=== PATIENT | male | born 1960 | race Caucasian/White ===

== ENCOUNTER 2016-06-02 11:02 | Day surgery (SDC) ==
[2016-06-02] MEDS ORDERED: DIPRIVAN 20 ML VIAL IVP ONE (12:12)
[2016-06-02] MEDS ORDERED: VERSED ONE (12:12)
[2016-06-02 13:41] VITALS: BP 145/94; TEMP 98.2
--- NOTE | 2016-06-02 15:00 | OP ---
PROCEDURE: COLONOSCOPY TO THE CECUM WITH SNARE POLYPECTOMY. ENDOSCOPIST: Bernardo CONDE M.D. INDICATION: SCREENING INSTRUMENT: [id number]. MEDICATION: PER ANESTHESIA. PROCEDURE: The patient was positioned for colonoscopy. The digital rectal exam was negative. The colonoscope was inserted through the anus and advanced to the cecum. The cecum was identified using the ileocecal valve and the appendiceal orifice as landmarks. The scope was slowly withdrawn through an adequately prepped colon. Careful inspection made of each colonic segment and the scope is withdrawn in a circumferential fashion. Care is take to inspect the proximal side of the ileocecal valve, haustral folds, flexures and rectal valves. Small polyp at 20 cm removed using snare cautery. Divertuli noted in the left colon. The retroflex exam was other negative with except of hemorrhoids. Withdraw time 8 minutes. PLAN: 1. Suggest repeat colonoscopy in 5-10 years after we review his pathology CC: Dr. Solis DOLL
== END 2016-06-02 13:32 | disposition home or self-care (01) ==
LOC: SURG 11:02
PROVIDERS: ATTEND Internal Medicine Gastroenterology
DX: Z12.11 Encounter for screening for malignant neoplasm of colon (principal); D12.5 Benign neoplasm of sigmoid colon; K57.30 Diverticulosis of large intestine without perforation or abscess without bleeding; K64.9 Unspecified hemorrhoids

== ENCOUNTER 2017-10-12 10:11 | Outpatient (CLI) | END 2017-10-12 10:12 | disposition home or self-care (01) | LOC: LAB 10:11 | PROVIDERS: ATTEND Internal Medicine | DX: B83.9 Helminthiasis, unspecified (principal) ==

== ENCOUNTER 2017-10-13 14:48 | Outpatient (CLI) | END 2017-10-13 14:49 | disposition home or self-care (01) | LOC: LAB 14:48 | PROVIDERS: ATTEND Internal Medicine | DX: B83.9 Helminthiasis, unspecified (principal) | CPT/HCPCS: 87015; 87045; 87899 ==

== ENCOUNTER 2018-02-22 08:39 | Outpatient (CLI) ==
--- NOTE | 2018-02-22 09:56 | CT ---
EXAM: CT of the abdomen pelvis with and without contrast History: Abdominal pain, change in bowel habits, diarrhea and constipation. Technique: Multiplanar CT images through the abdomen pelvis were obtained with and without the admin istration of IV contrast Findings: Subsegmental atelectasis seen within the lower lungs. No acute osseous abnormalities. Mo derate to severe degenerative disc disease at L2-L3. No renal stones and no hydronephrosis. No ureteral calculi. No gallstones identified by CT. Atherosclerotic vascular calcifications. No focal liver or splenic lesions. 3 cm simple cyst within the right kidney and 1 cm simple cyst within the left kidney. Panc reas is unremarkable. Adrenal glands are within normal limits. The appendix is normal. Small fat-c ontaining umbilical hernia. No bowel obstruction. No bladder wall thickening. Surgical clips seen in the pelvis. Bladder is low lying within the pelvis. Colonic diverticulosis. No free air and no ascites. Mild to moderate scattered colonic stool. No lymphadenopathy. Impression: 1. No acute intra-abdominal or pelvic process. 2. Colonic diverticulosis. 3. Simple bilateral renal cysts
== END 2018-02-22 08:40 | disposition home or self-care (01) ==
LOC: RAD 08:39
PROVIDERS: ATTEND Internal Medicine
DX: R19.4 Change in bowel habit (principal)

== ENCOUNTER 2018-02-25 13:31 | Outpatient (CLI) | END 2018-02-25 13:32 | disposition home or self-care (01) | LOC: LAB 13:31 | PROVIDERS: ATTEND Internal Medicine | DX: R19.5 Other fecal abnormalities (principal) | CPT/HCPCS: 87015; 87045; 87177; 87899 ==

== ENCOUNTER 2018-05-20 10:51 | Emergency (ER) ==
[2018-05-20 11:02] VITALS: BP 139/98; TEMP 98.2; BMI 22.6
--- NOTE | 2018-05-20 11:30 | ED.PDOC ---
General ED Provider: Dr. JUN TOMLINSON Chief Complaint: Diarrhea Stated Complaint: Flu symptoms for past 5 days with diarrhea and abdominal cramping . Denies N-V Time Seen by Physician: 11:15 Mode of Arrival: Walk-In Information Source: Patient Exam Limitations: No limitations Primary Care Provider: YEN FERRARA Nursing and Triage Documentation Reviewed and Agree: Yes Does patient meet sepsis criteria?: No System Inflammatory Response Syndrome: Not Applicable Sepsis Protocol: For patient's 13 years and over: Temp is 96.8 and below OR 101 and greater Pulse >90 BPM Resp >20/minute Acutely Altered Mental Status Are patient's symptoms suggestive of a new infection, such as: -Pneumonia -Skin, Soft Tissue -Endocarditis -UTI -Bone, Joint Infection -Implantable Device -Acute Abdominal Infection -Wound Infection -Meningitis -Blood Stream Catheter Infection -Unknown GI Complaint Exam - Vomiting/Diarrhea Complaint/Exam Onset/Duration: 3 days Symptoms Are: Still present (but improving) Episodes of Vomiting over last 24 Hours: 0 Episodes of Diarrhea Over Last 24 Hours: 3 Review of Systems - Review Of Systems Constitutional: Reports: No symptoms Eyes: Reports: No symptoms Ears, Nose, Mouth, Throat: Reports: No symptoms Respiratory: Reports: No symptoms Cardiac: Reports: No symptoms GI: Reports: Diarrhea : Reports: No symptoms Musculoskeletal: Reports: No symptoms Skin: Reports: No symptoms Neurological: Reports: No symptoms Endocrine: Reports: No symptoms Hematologic/Lymphatic: Reports: No symptoms All Other Systems: Reviewed and Negative Past Medical History - Past Medical History Previously Healthy: Yes Endocrine: Reports: None Cardiovascular: Reports: None Respiratory: Reports: None Hematological: Reports: None Gastrointestinal: Reports: None Genitourinary: Reports: None Neuro/Psych: Reports: Anxiety Musculoskeletal: Reports: None Cancer: Reports: None - Surgical History General Surgical History: Reports: None - Family History Family History: Reports: None - Social History Smoking Status: Current every day smoker, Heavy tobacco smoker Hx Substance Use: No Alcohol Screening: None Physical Exam - Physical Exam Appearance: Well-appearing, No pain distress, Well-nourished, Thin Ill-appearing: Mild Pain Distress: None Eyes: BASIL, EOMI, Conjunctiva clear ENT: Ears normal, Nose normal, Oropharynx normal Neck: Supple Respiratory: Airway patent, Breath sounds clear, Breath sounds equal Cardiovascular: RRR, Pulses normal, No rub, No murmur GI/: Soft, Nontender (No localized tenderness, guarding or rebound tenderness. ), No masses, Bowel sounds normal, No Organomegaly Musculoskeletal: Normal strength, ROM intact, No edema, No calf tenderness Skin: Warm, Dry, Normal color Neurological: Sensation intact, Motor intact, Reflexes intact, Cranial nerves intact, Alert, Oriented Psychiatric: Affect appropriate, Mood appropriate Interpretation - Radiology Interpretation Radiology Interpretation By: Radiologist Exam Interpreted: Other (non specific bowel gas pattern with some retained fecal material ascending colon/) Critical Care Note - Critical Care Note Total Time (mins): 0 Course - Course Hematology/Chemistry: 05/20/18 11:38 05/20/18 11:38 Orders, Labs, Meds: Lab Review 05/20/18 05/20/18 05/20/18 11:38 11:38 12:00 WBC 9.87 RBC 5.12 Hgb 15.3 Hct 46.0 MCV 89.8 MCH 29.9 MCHC 33.3 RDW Coeff of Nicanor 14.4 Plt Count 344 Immature Gran % (Auto) 0.4 Neut % (Auto) 73.6 Lymph % (Auto) 16.8 Tillman % (Auto) 6.5 Eos % (Auto) 2.2 Baso % (Auto) 0.5 Immature Gran # (Auto) 0.0 Neut # (Auto) 7.3 H Lymph # (Auto) 1.7 Tillman # (Auto) 0.6 Eos # (Auto) 0.2 Baso # (Auto) 0.1 Sodium 137.4 Potassium 4.31 Chloride 101.4 Carbon Dioxide 28.0 Anion Gap 12.31 BUN 7.9 L Creatinine 0.83 Estimated GFR (MDRD) 95.00 BUN/Creatinine Ratio 9.51 Glucose 126.6 H Calcium 9.72 Total Bilirubin 0.46 AST 23.0 ALT 13.5 Alkaline Phosphatase 59.0 Total Protein 7.59 Albumin 4.91 Globulin 2.68 Albumin/Globulin Ratio 1.83 Urine Color Urine Clarity Urine pH Ur Specific Mcfarland Urine Protein Urine Glucose (UA) Urine Ketones Urine Blood Urine Nitrite Urine Bilirubin Urine Urobilinogen Ur Leukocyte Esterase Urine Microscopic RBC Ur Squamous Epith Cells Influ A Molecular Assay Negative by naat Influ B Molecular Assay Negative by naat 05/20/18 12:00 WBC RBC Hgb Hct MCV MCH MCHC RDW Coeff of Nicanor Plt Count Immature Gran % (Auto) Neut % (Auto) Lymph % (Auto) Tillman % (Auto) Eos % (Auto) Baso % (Auto) Immature Gran # (Auto) Neut # (Auto) Lymph # (Auto) Tillman # (Auto) Eos # (Auto) Baso # (Auto) Sodium Potassium Chloride Carbon Dioxide Anion Gap BUN Creatinine Estimated GFR (MDRD) BUN/Creatinine Ratio Glucose Calcium Total Bilirubin AST ALT Alkaline Phosphatase Total Protein Albumin Globulin Albumin/Globulin Ratio Urine Color Yellow Urine Clarity Clear Urine pH 7.5 Ur Specific Mcfarland 1.015 Urine Protein Negative Urine Glucose (UA) Negative Urine Ketones Negative Urine Blood Trace-intact Urine Nitrite Negative Urine Bilirubin Negative Urine Urobilinogen 0.2 Ur Leukocyte Esterase Negative Urine Microscopic RBC 0-2 Ur Squamous Epith Cells Not present Influ A Molecular Assay Influ B Molecular Assay Orders Category Date Time Status CBC W/ AUTO DIFF Stat LAB 05/20/18 11:38 Completed CMP [COMPREHENSIVE METABOLIC PANEL] Stat LAB 05/20/18 11:38 Completed FLU A & B MOLECULAR [FLU A/B MOLECULAR] Stat LAB 05/20/18 12:00 Completed UA [URINALYSIS C & S IF INDICATED] Stat LAB 05/20/18 12:00 Completed ABDOMEN, SERIES FLAT & UPRIGHT Stat RADS 05/20/18 11:29 Completed Vital Signs: Temp Pulse Resp BP Pulse Ox 05/20/18 10:59 98.2 F 93 H 20 139/98 H 98 Departure - Departure Time of Disposition: 12:50 Disposition: HOME SELF-CARE Discharge Problem: Gastroenteritis, Fecal retention Instructions: Gastroenteritis (ED) Condition: Good Pt referred to PMD for follow-up: Yes (as needed ) IPMP verified?: No Additional Instructions: Clear liquid diet Take Immodium OTC as needed for severe cramping or excessive diarrhea Advance diet as tolerate once symptoms have resolved If symptoms fail to resolve or worsens-=follow up for re check Allergies/Adverse Reactions: Allergies No Known Allergies Allergy (Unverified 08/16/15 10:31) Home Medications: Ambulatory Orders Duloxetine HCl [Cymbalta] 30 mg PO DAILY #30 11/08/15 Alprazolam [Xanax] 0.5 mg PO BID #60 01/31/16 Duloxetine HCl [Cymbalta] 60 mg PO DAILY #30 01/31/16 Disposition Discussed With: Patient
--- NOTE | 2018-05-20 12:37 | DI ---
EXAM: Abdominal series HISTORY: Abdominal cramping and diarrhea COMPARISON: None TECHNIQUE: Supine upright views abdomen were performed FINDINGS: Bowel gas pattern is nonspecific. Mild gaseous distension of several loops of small bowel . Air and stool in the colon with moderate fecal retention right colon. Degenerative change in the spine. Atherosclerotic vascular calcification. No free air identified beneath the diaphragm. Surgi benji clips in the pelvis. IMPRESSION: Nonspecific bowel gas pattern with mild gaseous distension of several loops of small bow el and air and stool in the colon with moderate fecal retention right colon. Consider CT for further evaluation as clinically indicated
== END 2018-05-20 13:15 | disposition home or self-care (01) ==
LOC: ED 10:51
DX: K52.9 Noninfective gastroenteritis and colitis, unspecified (principal); K59.00 Constipation, unspecified; F17.210 Nicotine dependence, cigarettes, uncomplicated
CPT/HCPCS: 36415; 80053; 81001; 85025; 87502; 99283